=== PATIENT | female | born 1960 | race Caucasian/White ===

== ENCOUNTER 2018-10-07 09:12 | Emergency (ER) | payer BC, OTHER ==
[2018-10-07] MEDS ORDERED: Tetan/Diph/Pertus SYR(Tdap)* 0.5 ML SYR(BOOSTRIX) use SYR IM ONE (09:38)
[2018-10-07] MEDS ORDERED: oxyCODONE/Acetamin 5/325 MG* TAB PO ONE (09:39)
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
[2018-10-07 11:33] VITALS: BP 125/68
== END 2018-10-07 11:31 | disposition home or self-care (01) ==
LOC: ED 09:12
DX: S01.511A Laceration without foreign body of lip, initial encounter (principal); S09.93XA Unspecified injury of face, initial encounter; V73.6XXA Passenger on bus injured in collision with car, pick-up truck or van in traffic accident, initial encounter; Y92.410 Unspecified street and highway as the place of occurrence of the external cause; Z23 Encounter for immunization; Z88.0 Allergy status to penicillin; E07.9 Disorder of thyroid, unspecified; I10 Essential (primary) hypertension; M35.00 Sjogren syndrome, unspecified; M06.9 Rheumatoid arthritis, unspecified; F32.9 Major depressive disorder, single episode, unspecified
CPT/HCPCS: 12011; 70450; 70486; 72125; 90471; 90715; 99282; A9270-GY

== ENCOUNTER 2019-03-10 07:51 | Emergency (ER) | payer BC, OTHER ==
[2019-03-10] MEDS ORDERED: NS 0.9% 1000 ML** 1,000 ML IV ONE (08:19)
[2019-03-10] MEDS ORDERED: Ondansetron INJ* 2 MG/ML VIAL IV ONE ×2 (08:19→11:49)
[2019-03-10 08:57] LABS: ABS Lymphocytes 0.1 10^3/ul (1.0-4.8); ABS Monocytes 0.3 10^3/ul (0-0.8); ABS Neutrophils 4.4 10^3/ul (1.5-7.7); Eosinophil % 0.3 %; Hematocrit 37 % (35-47); Hemoglobin 12.2 g/dL (12.0-16.0); Lymphocyte % 2.8 %; Mean Corpuscular HGB Conc 33 g/dL (31-36); Mean Corpuscular Hemoglobin 27 pg (27-31); Mean Corpuscular Volume 83 fL (80-97); Mean Platelet Volume 9.2 fL (7.4-10.4); Platelet Count 150 10^3/uL (150-450); Red Blood Count 4.45 10^6 /uL (3.70-4.87); Red Cell Distribution Width 17 % (10-15); White Blood Count 4.8 10^3/uL (3.5-10.8)
[2019-03-10 09:06] LABS: INR 1.25 (0.82-1.09)
[2019-03-10 09:16] LABS: BUN/Creatinine Ratio 18.6 (8-20); C Reactive Protein 193.71 mg/L (<8.01); Calcium 8.9 mg/dL (8.6-10.3); EGFR Non-African American 85.9 (>60); Globulin 3.9 g/dL (2-4); Potassium 3.1 mmol/L (3.5-5.0); Total Bilirubin 0.9 mg/dL (0.2-1.0); Total Protein 7.9 g/dL (6.4-8.9)
[2019-03-10 09:17] LABS: Troponin I 0.01 ng/mL (<0.04)
[2019-03-10] MEDS ORDERED: Ketorolac INJ* 30 MG/ML 1 ML VIAL IV PUSH ONE (10:09)
[2019-03-10 10:15] LABS: Erythrocyte Sed Rate 48 mm/Hr (0-29)
--- NOTE | 2019-03-10 10:52 | ED ---
HPI Febrile Illness - HPI Summary HPI Summary: Patient is a 59-year-old female with a history of rheumatoid arthritis and Sjogren's disease presenting to the ED with fever, diffuse body aches and nausea 5 days. Symptoms improve with ibuprofen and Tylenol, however return. Temp highest last evening at 101.5. Endorses nausea with vomiting x 2, one episode last evening and once this morning. Denies sweats and chills. Denies diarrhea or constipation. She endorses weakness, but continues to be able to eat and drink okay as well as ambulate well. She is currently on methotrexate and Stellara. She states she does not recall a tick bite, but is being worked up for lyme disease by her PCP (labs taken yesterday and are pending through her PCP office.) Denies CP/SOB. Denies cough, congestion, recent illness or sick contacts. Denies recent travel, rashes, tick bites however has had several mosquito bites. Endorses CUTLER intermittently and this morning developed lower lip tingling which dissipated soon following. No new medication changes. - History of Current Complaint Chief Complaint: EDNauseaVomitDiarrh Time Seen by Provider: 03/10/19 08:07 Hx Obtained From: Patient Onset/Duration: Started Hours Ago Timing: Constant Temperature: 101.5 F Initial Severity: Moderate Current Severity: Moderate Pain Intensity: 9 Pain Scale Used: 0-10 Numeric Aggravating Factors: Nothing Alleviating Factors: Nothing Associated Signs and Symptoms: Nausea, Vomiting - Risk Factors Pseudomonas Risk Factors: Negative Serious Bacterial Infection Risk Factors: Negative - Allergy/Home Medications Allergies/Adverse Reactions: Allergies Allergy/AdvReac Type Severity Reaction Status Date / Time Penicillins Allergy Rash Verified 03/10/19 07:58 Home Medications: Home Medications Cevimeline HCl 30 mg PO BID 03/10/19 [History Confirmed 03/10/19] Folic Acid TAB* [Folvite TAB*] 1 tab PO DAILY 03/10/19 [History Confirmed ] Omeprazole 20 mg PO DAILY 03/10/19 [History Confirmed 03/10/19] Ustekinumab [Stelara] 45 mg SQ SEE INSTRUCTIONS 03/10/19 [History Confirmed 10/28] diPHENhydraMINE PO* [Benadryl PO 25 MG TAB*] 25 mg PO BEDTIME PRN 03/10/19 [ History Confirmed 03/10/19] metHOTREXate sodium [Methotrexate] 0.8 ml INJ WEEKLY 03/10/19 [History Confirmed 03/10/19] predniSONE [Prednisone 5 MG TAB] 5 mg PO DAILY PRN 03/10/19 [History Confirmed 03/10/19] PMH/Surg Hx/FS Hx/Imm Hx Previously Healthy: Yes Endocrine/Hematology History: Reports: Hx Thyroid Disease - ON MED, 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" Denies: Hx Diabetes Cardiovascular History: Reports: Hx Hypertension - CONTROLLED BY MEDS, Other Cardiovascular Problems/Disorders - "WATERMELON STOMACH" Denies: Hx Pacemaker/ICD Respiratory History: Reports: Other Respiratory Problems/Disorders - SJOGREN'S DISEASE AFFECTING NASAL INFLAMMATION, POST NASAL DRIP GI History: Reports: Other GI Disorders - "WATERMELON STOMACH" History: Denies: Hx Renal Disease Musculoskeletal History: Reports: Hx Arthritis - RHEUMATOID ARTHRITIS SINCE APPROX 2009, Hx Rheumatoid Arthritis Denies: Hx Osteoporosis Sensory History: Reports: Hx Contacts or Glasses - GLASSES, Hx Hearing Aid - [place] Opthamlomology History: Reports: Hx Contacts or Glasses - GLASSES Psychiatric History: Reports: Hx Depression - ON MEDS Denies: Hx Panic Disorder - Cancer History Hx Chemotherapy: No Hx Radiation Therapy: No - Surgical History Surgery Procedure, Year, and Place: HYSTERECTOMY; CARPAL TUNNEL BI-LAT WRIST Hx Anesthesia Reactions: No - Immunization History Date of Influenza Vaccine: 08/2018 Hx Pertussis Vaccination: No Immunizations Up to Date: Yes Infectious Disease History: No Infectious Disease History: Denies: Traveled Outside the [place] in Last 30 Days - Family History Known Family History: Negative: Respiratory Disease, Seizure Disorder - Social History Occupation: Employed Full-time Lives: With Family Alcohol Use: Rare Hx Substance Use: No Substance Use Type: Reports: None Hx Tobacco Use: No Smoking Status (MU): Never Smoked Tobacco Review of Systems Positive: Fever, Fatigue. Negative: Skin Diaphoresis Negative: Diplopia Negative: Dental Pain, Sore Throat Negative: Palpitations, Chest Pain Negative: Shortness Of Breath, Cough Negative: Abdominal Pain Positive: no symptoms reported, see HPI Positive: Myalgia Skin: Negative Positive: Headache All Other Systems Reviewed And Are Negative: Yes Physical Exam Triage Information Reviewed: Yes Vital Signs On Initial Exam: Initial Vitals Temp Pulse Resp BP Pulse Ox 98.6 F 97 16 159/88 97 07/02/19 07:55 03/10/19 07:55 03/10/19 07:55 03/10/19 07:55 03/10/19 07:55 Vital Signs Reviewed: Yes Appearance: Positive: Well-Appearing, Well-Nourished Skin: Positive: Warm, Skin Color Reflects Adequate Perfusion Head/Face: Positive: Normal Head/Face Inspection Eyes: Positive: EOMI, Conjunctiva Inflammed Neck: Positive: Supple Respiratory/Lung Sounds: Positive: Clear to Auscultation, Breath Sounds Present Cardiovascular: Positive: RRR, Pulses are Symmetrical in both Upper and Lower Extremities Musculoskeletal: Positive: Strength/ROM Intact Neurological: Positive: Sensory/Motor Intact, Alert, Oriented to Person Place, Time, Speech Normal Psychiatric: Positive: Normal, Affect/Mood Appropriate AVPU Assessment: Alert Diagnostics - Vital Signs Vital Signs Temp Pulse Resp BP Pulse Ox 03/10/19 08:31 98 03/10/19 07:55 98.6 F 97 16 159/88 97 - Laboratory Lab Results: Lab Results 03/10/19 03/10/19 03/10/19 Range/Units 08:42 08:42 08:42 WBC 4.8 (3.5-10.8) 10^3/uL RBC 4.45 (3.70-4.87) 10^6 /uL Hgb 12.2 (12.0-16.0) g/dL Hct 37 (35-47) % MCV 83 (80-97) fL MCH 27 (27-31) pg MCHC 33 (31-36) g/dL RDW 17 H (10-15) % Plt Count 150 (150-450) 10^3/uL MPV 9.2 (7.4-10.4) fL Neut % (Auto) 91.4 % Lymph % (Auto) 2.8 % [place] % (Auto) 5.2 % Eos % (Auto) 0.3 % Baso % (Auto) 0.3 % Absolute Neuts (auto) 4.4 (1.5-7.7) 10^3/ul Absolute Lymphs (auto) 0.1 L (1.0-4.8) 10^3/ul Absolute Monos (auto) 0.3 (0-0.8) 10^3/ul Absolute Eos (auto) 0.0 (0-0.6) 10^3/ul Absolute Basos (auto) 0.0 (0-0.2) 10^3/ul Absolute Nucleated RBC 0.0 10^3/ul Nucleated RBC % 0.0 ESR 48 H (0-29) mm/Hr INR (Anticoag Therapy) 1.25 H (0.82-1.09) Sodium 137 (135-145) mmol/L Potassium 3.1 L (3.5-5.0) mmol/L Chloride 100 L (101-111) mmol/L Carbon Dioxide 27 (22-32) mmol/L Anion Gap 10 (2-11) mmol/L BUN 13 (6-24) mg/dL Creatinine 0.70 (0.51-0.95) mg/dL Est GFR ( Amer) 104.0 (>60) Est GFR (Non-Af Amer) 85.9 (>60) BUN/Creatinine Ratio 18.6 (8-20) Glucose 175 H (70-100) mg/dL Lactic Acid (0.5-2.0) mmol/L Calcium 8.9 (8.6-10.3) mg/dL Total Bilirubin 0.90 (0.2-1.0) mg/dL AST 64 H (13-39) U/L ALT 68 H (7-52) U/L Alkaline Phosphatase 144 H (34-104) U/L Troponin I 0.01 (<0.04) ng/mL C-Reactive Protein 193.71 H (<8.01) mg/L Total Protein 7.9 (6.4-8.9) g/dL Albumin 4.0 (3.2-5.2) g/dL Globulin 3.9 (2-4) g/dL Albumin/Globulin Ratio 1.0 (1-3) 03/10/19 Range/Units 08:42 WBC (3.5-10.8) 10^3/uL RBC (3.70-4.87) 10^6 /uL Hgb (12.0-16.0) g/dL Hct (35-47) % MCV (80-97) fL MCH (27-31) pg MCHC (31-36) g/dL RDW (10-15) % Plt Count (150-450) 10^3/uL MPV (7.4-10.4) fL Neut % (Auto) % Lymph % (Auto) % [place] % (Auto) % Eos % (Auto) % Baso % (Auto) % Absolute Neuts (auto) (1.5-7.7) 10^3/ul Absolute Lymphs (auto) (1.0-4.8) 10^3/ul Absolute Monos (auto) (0-0.8) 10^3/ul Absolute Eos (auto) (0-0.6) 10^3/ul Absolute Basos (auto) (0-0.2) 10^3/ul Absolute Nucleated RBC 10^3/ul Nucleated RBC % ESR (0-29) mm/Hr INR (Anticoag Therapy) (0.82-1.09) Sodium (135-145) mmol/L Potassium (3.5-5.0) mmol/L Chloride (101-111) mmol/L Carbon Dioxide (22-32) mmol/L Anion Gap (2-11) mmol/L BUN (6-24) mg/dL Creatinine (0.51-0.95) mg/dL Est GFR ( Amer) (>60) Est GFR (Non-Af Amer) (>60) BUN/Creatinine Ratio (8-20) Glucose (70-100) mg/dL Lactic Acid 1.2 (0.5-2.0) mmol/L Calcium (8.6-10.3) mg/dL Total Bilirubin (0.2-1.0) mg/dL AST (13-39) U/L ALT (7-52) U/L Alkaline Phosphatase (34-104) U/L Troponin I (<0.04) ng/mL C-Reactive Protein (<8.01) mg/L Total Protein (6.4-8.9) g/dL Albumin (3.2-5.2) g/dL Globulin (2-4) g/dL Albumin/Globulin Ratio (1-3) Result Diagrams: 03/10/19 08:42 03/10/19 08:42 Lab Statement: Any lab studies that have been ordered have been reviewed, and results considered in the medical decision making process. Course/Dx - Course Course Of Treatment: The patient is evaluated for a fever to 101.5 a home, nausea with 2 episodes of vomiting, one last evening and one this morning. She states body aches symptoms have been present 5 days. She had followed up with her PCP yesterday and a Lyme test was drawn. Labs obtained which show elevated liver enzymes, possibly consistent with methotrexate or her recent Tylenol use. CRP is 193, ESR is 48. Potassium 3.1. She denies a cough or congestion so CXR was not obtained patient denies any urinary symptoms. Denies any back pain. She was given Toradol and Zofran with good relief. On reexamination, patient continues to feel slightly nauseous with a headache, she was subsequently given morphine and again Zofran. This with good relief of her symptoms. Brudzinskis and Kernigs negative. No abdominal pain on palpation. Lungs CTA. RRR. Mucous membranes dry with slight conjunctival injection, however patient states this is at her baseline due to Sjogrens. No rashes, [place] EM rash or other signs of trauma. Discussed with patient at length discharge home versus admit to hospital for fever of unknown origin. During her course of stay, patient remains afebrile and vital signs are stable. She states she continues to feel slightly nauseous, however would like to be discharged home at this time and will follow up with Dr. Bolton. She understands return precautions and agrees to return to the ED if she has persistent fevers not well controlled with Tylenol and ibuprofen, or has any other worsening or changing symptoms. - Febrile Illness Differential Diagnoses: Bacteremia, Cellulitis, Fever of Unknown Origin, Sepsis , Viremia - Diagnoses Provider Diagnoses: Nausea & vomiting, Fever Discharge - Sign-Out/Discharge Documenting (check all that apply): Patient Departure Patient Received Moderate/Deep Sedation with Procedure: No - Discharge Plan Condition: Stable Disposition: HOME Prescriptions: Ketorolac TAB * [Toradol TAB *] 10 mg PO Q6H #16 tab Metoclopramide TAB* [Reglan TAB*] 10 mg PO Q8H #12 tab Ondansetron ODT TAB* [Zofran 4 MG Odt TAB*] 4 mg PO Q6H PRN #12 tab.odt MDD 4 PRN Reason: Nausea Patient Education Materials: Fever in Adults (ED), Acute Nausea and Vomiting ( ED) Referrals: Ian Paul MD [Primary Care Provider] - Additional Instructions: Please call PCP office today Tylenol 650mg three times daily Toradol 10mg four times daily Take these intermittently DO NOT TAKE IBUPROFEN OR OTHER NSAIDS WHILE TAKING THIS MEDICATION Return to the ED for any worsening or changing symptoms Drink plenty of fluids Rest - Billing Disposition and Condition Condition: STABLE Disposition: Home
[2019-03-10] MEDS ORDERED: Morphine 4 MG/ML VIAL (1 ml) 4 MG/ML VIAL IV ONE (12:04)
[2019-03-10 12:48] VITALS: BP 137/66
== END 2019-03-10 13:04 | disposition home or self-care (01) ==
LOC: ED 07:51
DX: R11.2 Nausea with vomiting, unspecified (principal); R50.9 Fever, unspecified; R53.83 Other fatigue; R51 Headache; I10 Essential (primary) hypertension; M06.9 Rheumatoid arthritis, unspecified; M35.00 Sjogren syndrome, unspecified
CPT/HCPCS: 36415; 80053; 83605; 84484; 85025; 85610; 85652; 86140; 87040; 96374; 96375; 96376; 99283; J1885; J2270; J2405

== ENCOUNTER 2023-01-31 12:10 | Inpatient (IN) ==
[2023-01-31 12:52] LABS: ABS Basophils 0.1 10^3/uL (0.0-0.1); ABS Eosinophils 0.1 10^3/uL (0.0-0.5); ABS Lymphocytes 1.5 10^3/uL (1.0-4.8); ABS Monocytes 0.9 10^3/uL (0.0-0.9); ABS Neutrophils 8.9 10^3/uL (1.5-7.6); ABS Nucleated RBC 0.01 10^3/ul; Eosinophil % 1.2 %; Hematocrit 44.5 % (35-45); Hemoglobin 14.8 g/dL (11.5-14.3); Lymphocyte % 13.2 %; Mean Corpuscular Hemoglobin 29.4 pg (27-33); Mean Corpuscular Hgb Conc 33.3 g/dL (31-36); Mean Corpuscular Volume 88.2 fL (80-97); Mean Platelet Volume 9.4 fL (7.5-11.2); Nucleated Red Blood Cells % 0.1 /100 WBC (0.0-0.4); Platelet Count 318 10^3/uL (150-450); Red Blood Count 5.05 10^6/uL (3.63-4.92); Red Cell Distribution Width 15.4 % (12-17); White Blood Count 11.6 10^3/uL (3.8-11.8)
[2023-01-31] MEDS ORDERED: Ondansetron 4 mg VIAL 2 MG/ML 2 ml VIAL IV ONE ×2 (12:54→15:52)
[2023-01-31] MEDS ORDERED: Morphine 4 MG/ML VIAL (1 ml) IV ONE ×2 (12:54→15:52)
[2023-01-31 13:32] LABS: Albumin 4.8 g/dL (3.2-5.2); Albumin/Globulin Ratio 1.5 (1-3); C Reactive Protein 10.54 mg/L (<8.01); Calcium 10.3 mg/dL (8.6-10.3); Creatinine, Serum 0.99 mg/dL (0.51-0.95); Globulin 3.1 g/dL (2-4); Potassium 3.8 mmol/L (3.5-5.0); Total Bilirubin 0.6 mg/dL (0.2-1.0); Total Protein 7.9 g/dL (6.4-8.9); eGFR CKD-EPI 64.9 (>60)
[2023-01-31] MEDS ORDERED: Iodixanol (CONTRAST) 320 MG/ML 100 ML SDV IV ONE (14:33)
[2023-01-31] MEDS ORDERED: NS 0.9% 1000 ml BAG 1,000 ML IV ONE (15:47)
[2023-01-31] MEDS ORDERED: Metoclopramide 5 MG/ML VIAL (10 mg) IV ONE (18:17)
[2023-01-31] MEDS ORDERED: NS 0.9% 1000 ml BAG 1,000 ML IV SCH (18:45)
[2023-01-31] MEDS ORDERED: Ondansetron 4 mg VIAL 2 MG/ML 2 ml VIAL IV PRN (18:46)
[2023-01-31] MEDS: Enoxaparin 40 MG/0.4 ML SYR SUBCUT SCH (22:13)
[2023-01-31] MEDS: CALCIPOTRIENE 0.005% TOPICAL SCH (22:14)
[2023-02-01] MEDS: Acetaminophen IV 1 GM/100ML 1,000 MG/100 ML BAG IV PRN ×3 (04:45→23:03)
[2023-02-01 04:57] LABS: Urine Appearance Clear; Urine Bilirubin Negative (Negative); Urine Blood Negative (Negative); Urine Color Yellow; Urine Glucose Negative (Negative); Urine Ketones Negative (Negative); Urine Nitrite Negative (Negative); Urine Protein 1+(30 mg/dL) (Negative); Urine Specific Gravity 1.055 (1.002-1.030); Urine Urobilinogen Negative (Negative)
[2023-02-01 05:01] LABS: Urine Bacteria Absent (Absent); Urine Red Blood Cell Absent (Absent); Urine Squamous Epithelial Cell Present (Absent); Urine White Blood Cell Absent (Absent)
[2023-02-01 05:47] LABS: ABS Lymphocytes 0.5 10^3/uL (1.0-4.8); ABS Monocytes 0.9 10^3/uL (0.0-0.9); ABS Neutrophils 4.7 10^3/uL (1.5-7.6); ABS Nucleated RBC 0.01 10^3/ul; Eosinophil % 0.6 %; Hematocrit 39.6 % (35-45); Hemoglobin 13.2 g/dL (11.5-14.3); Lymphocyte % 8.8 %; Mean Corpuscular Hgb Conc 33.4 g/dL (31-36); Mean Corpuscular Volume 86.8 fL (80-97); Mean Platelet Volume 9.3 fL (7.5-11.2); Nucleated Red Blood Cells % 0.1 /100 WBC (0.0-0.4); Platelet Count 267 10^3/uL (150-450); Red Blood Count 4.56 10^6/uL (3.63-4.92); Red Cell Distribution Width 15.6 % (12-17); White Blood Count 6.2 10^3/uL (3.8-11.8)
[2023-02-01 05:54] LABS: Activated Partial Thrombo Time 39.2 seconds (26.0-38.0); INR 1.24 (0.88-1.18)
[2023-02-01 06:30] LABS: Albumin 3.8 g/dL (3.2-5.2); Albumin/Globulin Ratio 1.4 (1-3); Calcium 8.6 mg/dL (8.6-10.3); Creatinine, Serum 0.85 mg/dL (0.51-0.95); Globulin 2.7 g/dL (2-4); Magnesium 1.9 mg/dL (1.9-2.7); Phosphorus 4.2 mg/dL (2.5-5.0); Potassium 3.3 mmol/L (3.5-5.0); Total Bilirubin 0.7 mg/dL (0.2-1.0); Total Protein 6.5 g/dL (6.4-8.9); eGFR CKD-EPI 77.9 (>60)
[2023-02-01 06:43] LABS: TSH Ultra Thyroid Stim Horm 1.44 mcIU/mL (0.34-5.60)
[2023-02-01] MEDS ORDERED: KCL 20 MEQ/100 ML IVPREMIX 20 MEQ/100 ML BAG IV ONE (07:32)
[2023-02-01] MEDS: CALCIPOTRIENE 0.005% TOPICAL SCH ×2 (11:00→20:18)
[2023-02-01] MEDS: Enoxaparin 40 MG/0.4 ML SYR SUBCUT SCH (20:17)
[2023-02-01] MEDS: NS 0.9% 1000 ml BAG 1,000 ML IV SCH (20:30)
[2023-02-02] MEDS: NS 0.9% 1000 ml BAG 1,000 ML IV SCH (06:22)
[2023-02-02 06:27] LABS: ABS Eosinophils 0.1 10^3/uL (0.0-0.5); ABS Lymphocytes 1.3 10^3/uL (1.0-4.8); ABS Monocytes 0.7 10^3/uL (0.0-0.9); ABS Neutrophils 2.6 10^3/uL (1.5-7.6); Eosinophil % 2.8 %; Hematocrit 36.6 % (35-45); Hemoglobin 12.2 g/dL (11.5-14.3); Lymphocyte % 27.1 %; Mean Corpuscular Hemoglobin 29.5 pg (27-33); Mean Corpuscular Hgb Conc 33.3 g/dL (31-36); Mean Corpuscular Volume 88.7 fL (80-97); Mean Platelet Volume 9.3 fL (7.5-11.2); Platelet Count 226 10^3/uL (150-450); Red Blood Count 4.13 10^6/uL (3.63-4.92); Red Cell Distribution Width 15.6 % (12-17); White Blood Count 4.8 10^3/uL (3.8-11.8)
[2023-02-02 06:41] LABS: Calcium 8.2 mg/dL (8.6-10.3); Creatinine, Serum 0.75 mg/dL (0.51-0.95); Potassium 3.1 mmol/L (3.5-5.0); eGFR CKD-EPI 90.5 (>60)
[2023-02-02] MEDS ORDERED: KCL 20 MEQ/100 ML IVPREMIX 20 MEQ/100 ML BAG IV SCH (08:00)
[2023-02-02] MEDS: CALCIPOTRIENE 0.005% TOPICAL SCH ×2 (08:16→21:05)
[2023-02-02] MEDS ORDERED: Potassium Chlor 20 meq TAB.ER PO ONE ×2 (11:11→15:52)
[2023-02-02] MEDS: Enoxaparin 40 MG/0.4 ML SYR SUBCUT SCH (20:58)
[2023-02-03 07:11] LABS: Creatinine, Serum 0.69 mg/dL (0.51-0.95); Magnesium 1.9 mg/dL (1.9-2.7); Potassium 3.7 mmol/L (3.5-5.0); eGFR CKD-EPI 98.7 (>60)
[2023-02-03] MEDS: CALCIPOTRIENE 0.005% TOPICAL SCH ×2 (08:25→21:23)
[2023-02-03] MEDS ORDERED: Senna TAB 8.6 mg TAB PO PRN (16:15)
[2023-02-03] MEDS ORDERED: Magnesium Hydroxide LIQ 30 ML UDC PO PRN (16:15)
[2023-02-03] MEDS: Polyethylene Glycol 3350 17 GM PACKET PO SCH (17:33)
[2023-02-03] MEDS: Enoxaparin 40 MG/0.4 ML SYR SUBCUT SCH (21:23)
[2023-02-04 06:11] VITALS: BP 133/69
[2023-02-04] MEDS: CALCIPOTRIENE 0.005% TOPICAL SCH (07:39)
[2023-02-04] MEDS: Polyethylene Glycol 3350 17 GM PACKET PO SCH (07:40)
== END 2023-02-04 10:25 | disposition home or self-care (01) | DRG 247 ==
LOC: EDHOLD 12:10 → ED 12:10 → OBSVTOIN 17:51 → EDHOLD 20:47 → MEDTELE 22:26
PROVIDERS: ADMIT Internal Medicine; ATTEND Internal Medicine

== ENCOUNTER 2024-10-06 03:45 | Observation (INO) ==
[2024-10-06] MEDS ORDERED: Ondansetron 4 mg VIAL 2 MG/ML 2 ml VIAL IV PRN (06:07)
[2024-10-06 06:32] LABS: ABS Eosinophils 0.1 10^3/uL (0.0-0.5); ABS Lymphocytes 0.7 10^3/uL (1.0-4.8); ABS Monocytes 0.8 10^3/uL (0.0-0.9); ABS Neutrophils 7.1 10^3/uL (1.5-7.6); ABS Nucleated RBC 0.01 10^3/ul; Eosinophil % 1.2 %; Hematocrit 37.4 % (35-45); Hemoglobin 12.2 g/dL (11.5-14.3); Mean Corpuscular Hemoglobin 27.9 pg (27-33); Mean Corpuscular Hgb Conc 32.6 g/dL (31-36); Mean Corpuscular Volume 85.4 fL (80-97); Mean Platelet Volume 8.9 fL (7.5-11.2); Nucleated Red Blood Cells % 0.1 %/100WBC (0.0-0.8); Platelet Count 225 10^3/uL (150-450); Red Blood Count 4.38 10^6/uL (3.63-4.92); Red Cell Distribution Width 16.6 % (12-17); White Blood Count 8.7 10^3/uL (3.8-11.8)
[2024-10-06] MEDS: Pantoprazole VIAL 40 MG VIAL IV SCH (06:41)
[2024-10-06 07:05] LABS: Magnesium 2.1 mg/dL (1.9-2.7); Phosphorus 3.8 mg/dL (2.5-5.0)
[2024-10-06 07:08] LABS: Albumin 3.8 g/dL (3.5-5.7); Albumin/Globulin Ratio 1.5 (1-3); Calcium 8.5 mg/dL (8.6-10.3); Creatinine, Serum 0.8 mg/dL (0.51-0.95); Globulin 2.5 g/dL (2-4); Potassium 3.8 mmol/L (3.5-5.0); Total Bilirubin 0.5 mg/dL (0.2-1.0); Total Protein 6.3 g/dL (6.4-8.9); eGFR CKD-EPI 82.7 (>60)
[2024-10-06] MEDS: Hydrocortisone INJ 100 MG/2ML 2 ML VIAL IV SCH (09:12)
[2024-10-06] MEDS: Lactated Ringers 1000 ml BAG 1,000 ML IV SCH ×2 (09:12→09:29)
[2024-10-06] MEDS: Enalaprilat IV 1.25 mg/ml 1 ml VIAL (1.25 MG) IV ONE (10:16)
[2024-10-06] MEDS ORDERED: Diatrizoate Meg/Sod(CONTRAST) 30 ML ORAL.SOLN PO SCH (10:23)
[2024-10-06] MEDS: Diatrizoate Meg/Sod(CONTRAST) 30 ML ORAL.SOLN PO ONE (10:42)
[2024-10-06] MEDS: CMC:Pilocarpine 5 mg TAB (NF) PO SCH (12:31)
[2024-10-06] MEDS ORDERED: Enalaprilat IV 1.25 mg/ml 1 ml VIAL (1.25 MG) IV PRN (13:00)
[2024-10-06] MEDS: Potassium Chloride LIQUID 20 MEQ/15 ML LIQUID PO ONE (18:04)
[2024-10-06 18:10] LABS: Activated Partial Thrombo Time 37.8 seconds (26.0-38.0); INR 1.18 (0.85-1.14)
[2024-10-06] MEDS: Heparin 5000 UNITS/ML 1 mL VIAL SUBCUT SCH (20:47)
[2024-10-07 06:21] LABS: ABS Eosinophils 0.1 10^3/uL (0.0-0.5); ABS Lymphocytes 1.3 10^3/uL (1.0-4.8); ABS Monocytes 0.3 10^3/uL (0.0-0.9); ABS Nucleated RBC 0.01 10^3/ul; Eosinophil % 3.4 %; Hematocrit 33.5 % (35-45); Hemoglobin 10.9 g/dL (11.5-14.3); Lymphocyte % 34.3 %; Mean Corpuscular Hemoglobin 28.1 pg (27-33); Mean Corpuscular Hgb Conc 32.3 g/dL (31-36); Mean Corpuscular Volume 86.8 fL (80-97); Mean Platelet Volume 9.8 fL (7.5-11.2); Nucleated Red Blood Cells % 0.2 %/100WBC (0.0-0.8); Platelet Count 148 10^3/uL (150-450); Red Blood Count 3.87 10^6/uL (3.63-4.92); Red Cell Distribution Width 17.1 % (12-17); White Blood Count 3.7 10^3/uL (3.8-11.8)
[2024-10-07 06:44] LABS: Calcium 8.6 mg/dL (8.6-10.3); Creatinine, Serum 0.73 mg/dL (0.51-0.95); Magnesium 1.9 mg/dL (1.9-2.7); Potassium 3.9 mmol/L (3.5-5.0); eGFR CKD-EPI 92.3 (>60)
[2024-10-07] MEDS: Potassium Chloride LIQUID 20 MEQ/15 ML LIQUID PO ONE (08:43)
[2024-10-07] MEDS: Lactated Ringers 1000 ml BAG 1,000 ML IV SCH (12:26)
[2024-10-07 12:36] LABS: ABS Eosinophils 0.1 10^3/uL (0.0-0.5); ABS Lymphocytes 0.7 10^3/uL (1.0-4.8); ABS Monocytes 0.3 10^3/uL (0.0-0.9); ABS Neutrophils 3.4 10^3/uL (1.5-7.6); Eosinophil % 2.1 %; Hematocrit 36.1 % (35-45); Hemoglobin 11.7 g/dL (11.5-14.3); Mean Corpuscular Hgb Conc 32.3 g/dL (31-36); Mean Corpuscular Volume 86.7 fL (80-97); Nucleated Red Blood Cells % 0.1 %/100WBC (0.0-0.8); Platelet Count 211 10^3/uL (150-450); Red Blood Count 4.16 10^6/uL (3.63-4.92); Red Cell Distribution Width 16.9 % (12-17); White Blood Count 4.6 10^3/uL (3.8-11.8)
[2024-10-07] MEDS: Heparin 5000 UNITS/ML 1 mL VIAL SUBCUT SCH (19:49)
[2024-10-08] MEDS: Iron Sucrose 200 MG in NS 0.9% 100 ml BAG 100 ML IVPB ONE (05:26)
[2024-10-08 05:45] LABS: ABS Eosinophils 0.2 10^3/uL (0.0-0.5); ABS Lymphocytes 1.6 10^3/uL (1.0-4.8); ABS Monocytes 0.5 10^3/uL (0.0-0.9); Hematocrit 33.3 % (35-45); Lymphocyte % 29.1 %; Mean Corpuscular Hemoglobin 28.5 pg (27-33); Mean Corpuscular Hgb Conc 32.9 g/dL (31-36); Mean Corpuscular Volume 86.6 fL (80-97); Mean Platelet Volume 8.9 fL (7.5-11.2); Nucleated Red Blood Cells % 0.1 %/100WBC (0.0-0.8); Platelet Count 187 10^3/uL (150-450); Red Blood Count 3.84 10^6/uL (3.63-4.92); Red Cell Distribution Width 16.9 % (12-17); White Blood Count 5.3 10^3/uL (3.8-11.8)
[2024-10-08 14:29] VITALS: BP 158/77
== END 2024-10-08 18:10 | disposition home or self-care (01) ==
LOC: SUATTDRO 04:47 → INTOOBSV 04:47 → MED 04:47
PROVIDERS: ADMIT Student in an Organized Health Care Education/Training Program; ATTEND Internal Medicine